=== PATIENT | female | born 1970 | race Caucasian/White ===

== ENCOUNTER 2018-08-31 12:08 | Emergency (ER) | payer OTHER, SELFPAY ==
[2018-08-31 12:10] VITALS: BP 146/73; PULSE 77; RESP 16; TEMP 36.4; O2SAT 97; BMI 29.5
--- NOTE | 2018-08-31 12:18 | ED.DCSUM_ITS ---
- ER Visit Summary Date of Service: 08/31/18 Chief Complaint: Left foot pain History of Present Illness: The patient is a 48 F who presents with left foot pain. She stepped in a hole last night. Hurts to walk on it. She took nothing for this at home. She walked a long distance after the injury and that made it worse. No previous injuries or fractures to this foot. Physical Examination: Vital signs reviewed. Left foot exam reveals tenderness to palpation of the proximal metatarsals. There is no ecchymosis. She has painful range of motion. 2+ DP pulses are palpated. She does have onychomycosis of each toenail. Test Results: X-rays are negative for fracture Emergency Department Course and Treatment: Patient declined pain medications. She will be given a postop shoe. She will ice and use NSAIDs. Will follow up with her PCP Treatment Plan: [] Disposition: Discharge Impression: Left foot sprain This note was generated with [employer] dictation software. It may contain incorrect words, spelling, and punctuation that were not noted in review of the chart prior to signing ED Disposition - Plan for ED Patient: Chief Complaint: Lower Extremity Injury
--- NOTE | 2018-08-31 12:42 | RAD_ITS ---
STUDY: X-RAY - LEFT FOOT CLINICAL: Female, 48 years old. Pain following an injury. TECHNIQUE: 3 view(s) of the foot. COMPARISON: None. FINDINGS: Normal talus, calcaneus, and tarsal bones. Normal visualized subtalar, talonavicular, calcaneocuboid, tarsal and tarsometatarsal articulations. Normal metatarsi. Normal metatarsophalangeal joint of the great toe. Normal tibial and fibular sesamoid bones. Normal interphalangeal joint of the great toe. Normal phalanges of the great toe. Normal second through fifth metatarsophalangeal joints. Normal interphalangeal joints and phalanges of the lesser toes. The soft tissue structures are unremarkable. RAD/Foot min 3 Views IMPRESSION: Normal x-ray examination of the foot. Electronically Signed: Perez Gonzalez MD at 13:04 EDT Tel [phone], Service support ,
--- NOTE | 2018-08-31 13:10 | ED.DEP ---
ED Disposition - Plan for ED Patient: Disposition: Home or Assisted Living Chief Complaint: Lower Extremity Injury Instructions: ED Sprain Foot Referrals: Care Physician,No Primary [Primary Care Provider] -
[2018-08-31 13:51] VITALS: RESP 16
--- NOTE | 2018-08-31 13:51 | ED.RN ---
REVIEWED D/C INSTRUCTIONS, FOLLOW UP CARE, AND S/S THAT WOULD WARRANT A RETURN TO THE ED WITH PT. PT VERBALIZED AN UNDERSTANDING AND DENIES FURTHER QUESTIONS FOR THIS RN. PT SKIN P/W/D, RESP EVEN AND UNLABORED, PT A&O X 3, NO DISTRESS NOTED. PT AMBULATED OUT OF ED, GAIT STEADY.
== END 2018-08-31 13:52 | disposition home or self-care (01) ==
PROVIDERS: Emergency Provider Emergency Medicine
DX: S93.602A Unspecified sprain of left foot, initial encounter (principal); J45.909 Unspecified asthma, uncomplicated; J44.9 Chronic obstructive pulmonary disease, unspecified; Z72.0 Tobacco use; Z79.51 Long term (current) use of inhaled steroids; Z79.899 Other long term (current) drug therapy; X58.XXXA Exposure to other specified factors, initial encounter; Y93.01 Activity, walking, marching and hiking; Y92.89 Other specified places as the place of occurrence of the external cause; Y99.8 Other external cause status
CPT/HCPCS: 73630; 99283

== ENCOUNTER 2018-10-28 21:14 | Emergency (ER) | payer MEDICAID, SELFPAY ==
[2018-10-28 21:15] VITALS: BP 124/77; PULSE 85; RESP 17; TEMP 36.3; O2SAT 98; BMI 26.5
[2018-10-28 22:14] VITALS: TEMP 36.4
--- NOTE | 2018-10-28 23:27 | ED.DCSUM_ITS ---
- ER Visit Summary Date of Service: 10/28/18 Chief Complaint: I need antibiotics and cough medicine History of Present Illness: The patient is a 48 F with a cough for a couple days. This is a dry cough. Associated with nasal congestion, low-grade fevers, vomiting, and a headache. Patient had similar symptoms in the past and has a history of asthma, COPD, and pneumonia. She is a smoker. Physical Examination: Afebrile and vital signs unremarkable. Alert and oriented. No acute distress. Sitting, breathing, speaking comfortably. HEENT exam unremarkable. Lungs clear in all garcia. Heart regular rate and rhythm. Skin appears normal. Test Results: None performed Emergency Department Course and Treatment: Treatment options were discussed. Patient was treated with Zofran, Tessalon Perles, and doxycycline. She received 1 dose of pain medicine here, but I advised that we do not prescribe controlled substances for this indication. Patient was advised to stay hydrated. She was given a prescription for Zofran and doxycycline. Follow-up with primary care. Return for any new or worsening issues. Treatment Plan: As above Disposition: Discharge Impression: 1. Bronchitis This note was generated with [employer] dictation software. It may contain incorrect words, spelling, and punctuation that were not noted in review of the chart prior to signing ED Disposition - Plan for ED Patient: Chief Complaint: Cold Sx Referrals: Care Physician,No Primary [Primary Care Provider] -
--- NOTE | 2018-10-28 23:27 | ED.DEP ---
ED Disposition - Plan for ED Patient: Chief Complaint: Cold Sx Instructions: Acute Bronchitis Prescriptions: Ondansetron [Zofran Odt] 4 mg PO Q8H PRN PRN #10 tab PRN Reason: Nausea Benzonatate [Tessalon Perle] 100 mg PO TID PRN PRN #20 cap PRN Reason: Cough Doxycycline 100 mg PO BID 7 Days #14 cap Referrals: Rc Ramsay DO [NON CLINICAL AFFILIATE] -
[2018-10-28] MEDS: Ondansetron ODT 4 MG Tablet 8 MG PO (23:38)
[2018-10-28] MEDS: Benzonatate 100 MG Capsule 200 MG PO (23:38)
[2018-10-28] MEDS: HYDROcodone Bitartrate/Apap 5/325 Tablet PO (23:38)
[2018-10-28] MEDS: Doxycycline 100 MG CAPSULE PO (23:38)
[2018-10-28 23:43] VITALS: PULSE 92; RESP 22; O2SAT 92
== END 2018-10-28 23:43 | disposition home or self-care (01) ==
LOC: ED 22:40
PROVIDERS: Emergency Provider Emergency Medicine
DX: J40 Bronchitis, not specified as acute or chronic (principal); F17.200 Nicotine dependence, unspecified, uncomplicated; J45.909 Unspecified asthma, uncomplicated; J44.9 Chronic obstructive pulmonary disease, unspecified; Z79.51 Long term (current) use of inhaled steroids; Z79.899 Other long term (current) drug therapy
CPT/HCPCS: 99283

== ENCOUNTER 2020-06-21 02:16 | Emergency (ER) | payer MEDICAID, SELFPAY ==
[2020-06-21 02:18] VITALS: BP 121/75; PULSE 87; RESP 15; TEMP 36.1; O2SAT 97; BMI 32.3
--- NOTE | 2020-06-21 02:29 | ED.VISSUMM ---
- ER Visit Summary Date of Service: 06/21/20 Chief Complaint: [Bilateral arm pain] History of Present Illness: The patient is a 50 F [presents the emergency department complaint of bilateral arm pain that she has had for several weeks. Patient states that she has had this achy discomfort in the forearms and hands. She denies any trauma. She denies any injury to her neck. She denies weakness in extremities. Patient states that she is currently taking tenacity and as well as meloxicam and it has not really helped her pain tonight. Patient does do a lot of repetitive motions with her arms. She has had prior surgery on her left arm to perform ulnar shortening. She moved to the area from [place] recently and has not established with a primary care physician locally. Patient denies any chest pain or shortness of breath. She denies any history of PE or DVT. Does have history of COPD.] Physical Examination: [HEENT-PERRLA, EOMI. Cranial nerves II through XII grossly intact. TMs clear. Mucous membranes moist. No adenopathy. Cardiovascular-regular rate and rhythm without murmur or ectopy Lungs-clear to auscultation, chest wall stable without crepitus or subcu emphysema Abdomen-normoactive bowel sounds, soft, nontender, no rebound or rigidity, no peritoneal signs. Extremities-intact ?4, normal range of motion, normal pulses, atraumatic. Evaluation of both arms reveal no evidence of edema. She is got normal pulses. Deep tendon reflexes are plus 2 out of 4 bilaterally at the bicep, tricep, and brachioradialis. 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 No ropes or cords palpated. Will cap refill.] Test Results: [None indicated] Emergency Department Course and Treatment: [] Treatment Plan: [She will be given a few [place] for pain. She will be given referral to orthopedics as well as primary care physician locally. Etiology of her arm pain is unclear although I suspect it may be related to neuropathy.] Disposition: [Discharged home in stable condition] Impression: [Bilateral arm pain] This note was generated with [employer] dictation software. It may contain incorrect words, spelling, and punctuation that were not noted in review of the chart prior to signing ED Disposition - Plan for ED Patient: Referrals: Care Physician,No Primary [Primary Care Provider] -
--- NOTE | 2020-06-21 02:31 | ED.DEP ---
ED Disposition - Plan for ED Patient: Instructions: ED PERIPHERAL NEUROPATHY Prescriptions: Hydrocodone Bitart/Apap 5-325 [[place] 5MG-325MG] 1 tab PO Q4H PRN PRN 2 Days #10 tab PRN Reason: Pain Prescription Printed Referrals: Care Physician,No Primary [Primary Care Provider] - Mireille Kelly MD [STAFF PHYSICIAN] - 3-5 Days Harry Pineda MD [STAFF PHYSICIAN] - 3-5 Days
[2020-06-21] MEDS: HYDROcodone Bitartrate/Apap 5/325 Tablet PO (02:51)
[2020-06-21 02:54] VITALS: BP 121/75; PULSE 87; RESP 15; O2SAT 97
== END 2020-06-21 03:07 | disposition home or self-care (01) ==
LOC: ED 02:59
PROVIDERS: Emergency Provider Emergency Medicine
DX: M79.601 Pain in right arm (principal); M79.602 Pain in left arm; F17.200 Nicotine dependence, unspecified, uncomplicated
CPT/HCPCS: 99283

== ENCOUNTER 2020-08-02 16:11 | Emergency (ER) | payer MEDICAID, SELFPAY ==
[2020-08-02 16:13] VITALS: BP 129/76; PULSE 85; RESP 16; TEMP 36.6; O2SAT 97; BMI 29.1
--- NOTE | 2020-08-02 16:38 | ED.DCSUM_ITS ---
History of Present Illness Chief Complaint: Other, Pain/Inj Narrative: Patient was moving this week and she is presenting with right-sided neck pain in the paraspinal region. There is some radiation to her right arm she has no loss of strength, she has no paresthesias in her hand or arm she has no chest pain or shortness of breath or any other symptoms. Past Medical History - Allergies and Home Meds Allergies/Adverse Reactions: Allergies ibuprofen Allergy (Verified 08/02/20 16:13) Anaphylaxis tramadol [From Ultram] Allergy (Verified 08/02/20 16:13) Hives MORPHINE Adverse Reaction (Uncoded 08/02/20 16:13) Other Primary Care Physician: Care Physician,No Primary [Primary Care Provider] - Past Medical History: - - COPD, continues to smoke Smoking Status: Current every day smoker Review of Systems General: Denies: Fever Eyes: Denies: Visual changes - bilaterally ENT: Denies: Sore throat Cardiovascular: Denies: Chest pain Respiratory: Denies: Dyspnea, Cough Gastrointestinal: Denies: Abdominal pain, Nausea, Vomiting Genitourinary: Denies: Dysuria Musculoskeletal: Reports: Neck pain. Denies: Back pain Skin: Denies: Rash Neurological: Denies: Headache, Weakness Hematologic: Denies: Easy bruising, Easy bleeding Physical Exam Vital Signs/Narrative: Vital Signs Temp Pulse Resp BP Pulse Ox 08/02/20 16:13 97.8 F 85 16 129/76 H 97 General: Well nourished, Well developed ENT: Moist mucous membranes, No rhinorrhea Neck: - - There is right paraspinal tenderness to palpation along the paraspinal muscles extending into the upper trapezius region, there are a few trigger points in that region. No C-spine tenderness. Cardiovascular: Regular rate, Regular rhythm Respiratory: No distress, - - Coarse bilateral breath sounds but speaks in full sentences without any respiratory distress Abdomen: Soft, Nontender Back: Nontender, Normal Inspection Extremities: Nontender, No edema Neurological: Normal Strength, Normal Sensation Diagnostic/Tx/Re-eval - Medical Decision Making Patient has a cervical strain, I will treat her as such. I will discharge in stable condition with analgesia and muscle relaxants. ED Disposition - Plan for ED Patient: Disposition: Home or Assisted Living Diagnosis: Cervical strain Instructions: ED Sprain Strain Neck Prescriptions: Hydrocodone Bitart/Apap 5-325 [[place] 5MG-325MG] 1 tab PO Q4H PRN PRN 2 Days #10 tab PRN Reason: Pain Prescription Printed Tizanidine HCl 4 mg PO TID PRN PRN #12 tab PRN Reason: Muscle Spasm Prescription Printed Referrals: Care Physician,No Primary [Primary Care Provider] - 3-5 Days
[2020-08-02] MEDS: cycloBENZAPRine HCl 10 MG Tablet PO (16:45)
[2020-08-02] MEDS: HYDROmorphone 1 MG/ML Syringe IM (16:45)
--- NOTE | 2020-08-02 17:28 | DCINST.ED_ITS ---
ED Disposition - Plan for ED Patient: Disposition: Home or Assisted Living Diagnosis: Cervical strain Instructions: ED Sprain Strain Neck Prescriptions: Hydrocodone Bitart/Apap 5-325 [[place] 5MG-325MG] 1 tab PO Q4H PRN PRN 2 Days #10 tab PRN Reason: Pain Prescription Printed Tizanidine HCl 4 mg PO TID PRN PRN #12 tab PRN Reason: Muscle Spasm Prescription Printed Referrals: Irvin Rocha MD [NON-STAFF] - 3-5 Days
[2020-08-02 17:32] VITALS: BP 114/79
== END 2020-08-02 17:32 | disposition home or self-care (01) ==
LOC: ED 17:03
PROVIDERS: Emergency Provider Emergency Medicine
DX: S16.1XXA Strain of muscle, fascia and tendon at neck level, initial encounter (principal); F17.200 Nicotine dependence, unspecified, uncomplicated; J44.9 Chronic obstructive pulmonary disease, unspecified; X58.XXXA Exposure to other specified factors, initial encounter
CPT/HCPCS: 96372; 99283

== ENCOUNTER 2020-08-11 17:24 | Emergency (ER) | payer MEDICAID, SELFPAY ==
[2020-08-11 17:25] VITALS: BP 138/75; PULSE 90; RESP 15; TEMP 36.1; O2SAT 99; BMI 33.5
--- NOTE | 2020-08-11 17:41 | ED.DCSUM_ITS ---
History of Present Illness Chief Complaint: Abscess Informant: Patient Narrative: 50-year-old female with no significant past medical history presents with left groin pain. States that she presented to [facility] [place] emergency department approximately 3 days ago where she had an abscess incised and drained. States that there was packing in this abscess but it had since fallen out. States that last night she was in the shower was able to express significant amount of purulent fluid. Patient concerned because she is having pain and did not get a prescription for antibiotics. Denies any fever, chills, abdominal pain, nausea, vomiting. Past Medical History - Allergies and Home Meds Allergies/Adverse Reactions: Allergies ibuprofen Allergy (Verified 08/11/20 17:24) Anaphylaxis tramadol [From Ultram] Allergy (Verified 08/11/20 17:24) Hives MORPHINE Adverse Reaction (Uncoded 08/11/20 17:24) Other Primary Care Physician: Care Physician,No Primary [Primary Care Provider] - Prior records reviewed: Yes Past Medical History: None Surgical History: no surgical history Lives: With Family Smoking Status: Current every day smoker Alcohol: None Drugs: None Review of Systems General: Denies: Chills, Fever, Sweats Eyes: Denies: Visual changes - bilaterally, Diplopia ENT: Denies: Rhinorrhea, Sore throat Cardiovascular: Denies: Chest pain, Palpitations Respiratory: Denies: Dyspnea, Cough, Dyspnea on exertion Gastrointestinal: Denies: Abdominal pain, Nausea, Vomiting, Diarrhea, Melena, Hematochezia Genitourinary: Denies: Dysuria, Hematuria, Frequency Musculoskeletal: Denies: Back pain, Extremity Pain Skin: Reports: Abscess. Denies: Rash, Wounds Neurological: Denies: Headache, Weakness, Numbness Physical Exam Vital Signs/Narrative: Vital Signs Temp Pulse Resp BP Pulse Ox 08/11/20 17:25 96.9 F L 90 15 138/75 H 99 General: Well nourished, Well developed, No Acute Distress Head: Normocephalic, Atraumatic Eyes: Perrl, EOMI ENT: Moist mucous membranes, No rhinorrhea Neck: Supple, Nontender Cardiovascular: Regular rate, Regular rhythm, No murmurs Respiratory: No distress, CTA bilaterally, Chest nontender Abdomen: Soft, Nontender, Nondistended, Normal bowel sounds Back: Nontender, Normal Inspection Extremities: Nontender, No edema Skin: Normal color, No rash, - - incised area to the left groin. with mild induration and no flutuance. no significant erythema. Neurological: Alert, Oriented x3, Cranial nerves II-XII grossly intact, Normal Strength, Normal Sensation Psychological: Normal affect, Normal Mood Diagnostic/Tx/Re-eval - Medical Decision Making Appears well and nontoxic. The abscess is already been incised and drained. Patient be placed on Keflex and Bactrim. Patient given 1 oxycodone in the emergency department. Advised on Tylenol at home. Advised to return for fever, chills, abdominal pain. Patient agreeable and discharged home in stable condition. Impression: 1. Left groin abscess - resolved 2. Tobacco abuse ED Disposition - Plan for ED Patient: Disposition: Home or Assisted Living Instructions: ED Abscess Incision And Drainage, ED Abscess Antibiotic Treatment Only Prescriptions: Smz/Tmp Ds [Bactrim Ds] 1 tab PO BID #14 tab Prescription Printed Cephalexin [Keflex] 500 mg PO Q6 #40 cap Prescription Printed Referrals: Rc Ramsay DO [NON CLINICAL AFFILIATE] - 3-5 Days
[2020-08-11 17:45] VITALS: PULSE 87; RESP 17; O2SAT 97
[2020-08-11] MEDS: Smz/Tmp Ds Tablet 1 TABLET PO (17:50)
[2020-08-11] MEDS: Cephalexin 250 MG Capsule 500 MG PO (17:50)
[2020-08-11] MEDS: oxyCODONE 5 MG Tablet PO (17:51)
== END 2020-08-11 17:58 | disposition home or self-care (01) ==
LOC: ED 17:52
PROVIDERS: Emergency Provider Emergency Medicine
DX: L02.214 Cutaneous abscess of groin (principal); F17.200 Nicotine dependence, unspecified, uncomplicated
CPT/HCPCS: 99281

== ENCOUNTER 2021-04-09 21:42 | Emergency (ER) | payer MEDICAID, SELFPAY ==
[2021-04-09 21:42] VITALS: BP 156/96; PULSE 92; RESP 18; TEMP 36.6; O2SAT 97; BMI 35.4
[2021-04-09] MEDS: oxyCODONE 5 MG Tablet PO (22:30)
--- NOTE | 2021-04-09 22:40 | RAD_ITS ---
STUDY: X-RAY - PELVIS REASON FOR EXAM: Female, 50 years old. injury TECHNIQUE: One view of the pelvis was obtained. COMPARISON: None. FINDINGS: There is a non-specific bowel gas pattern. Normal visualized soft tissue structures. Normal bilateral iliac wings, sacroiliac joints and visualized sacrum. Normal visualized bilateral superior and inferior pubic rami. Normal pubic symphysis. Normal ischial tuberosities. Normal visualized right femoral head. Normal right acetabulum. Normal right hip joint. Normal visualized left femoral head. Normal left acetabulum. Normal left hip joint. RAD/Pelvis 1 or 2 Views IMPRESSION: Normal x-ray examination of the pelvis. Electronically Signed: Haresh Mcmanus DO at 23:35 EDT Tel , Service support ,
--- NOTE | 2021-04-09 22:45 | RAD_ITS ---
STUDY: X-RAY - LUMBAR SPINE REASON FOR EXAM: Female, 50 years old. injury TECHNIQUE: 3 view(s) of the lumbar spine were obtained. COMPARISON: None FINDINGS: Normal lumbar lordosis. There is no substantial scoliosis. There is a normal alignment of the vertebrae. Normal vertebral bodies and endplates. Normal disc space heights. The soft tissue structures are unremarkable. RAD/Lumbar Spine 2 or 3 Views IMPRESSION: Normal x-ray examination of the lumbar spine. Electronically Signed: Haresh Mcmanus DO at 23:34 EDT Tel , Service support ,
--- NOTE | 2021-04-09 22:50 | RAD_ITS ---
STUDY: X-RAY - RIGHT RADIUS AND ULNA REASON FOR EXAM: Female, 50 years old. injury TECHNIQUE: 2 view(s) of the forearm. COMPARISON: None. FINDINGS: There is no demonstrated soft tissue swelling. Normal visualized radius. Normal visualized ulna. RAD/Forearm 2 Views IMPRESSION: Normal x-ray examination of the radius and ulna. Electronically Signed: Haresh Mcmanus DO at 23:34 EDT Tel , Service support ,
--- NOTE | 2021-04-09 22:57 | RAD_ITS ---
STUDY: X-RAY CHEST REASON FOR EXAM: Female, 50 years old. injury TECHNIQUE: PA and lateral views of the chest. COMPARISON: None. FINDINGS: The lungs are clear and expanded. There is no demonstrated pleural abnormality. Normal size heart. Normal mediastinum and richard. Normal visualized pulmonary arteries. Normal visualized aortic arch and descending thoracic aorta. Normal visualized thoracic spine. Normal visualized ribs, clavicles, and shoulders. There is no demonstrated abnormality of the visualized soft tissue structures of the upper abdomen. RAD/Chest PA and Lateral IMPRESSION: Normal x-ray examination of the chest. Electronically Signed: Haresh Mcmanus DO at 23:34 EDT Tel , Service support ,
--- NOTE | 2021-04-09 23:47 | ED.VIS.FALL ---
HPI HPI - Fall History of Present Illness Chief Complaint: Fall Informant: patient Occured/Mechanism Occurred: Today Pain/Injury Pain Location: pelvis, back and upper extremity (Right forearm) Current Severity: Moderate Maximum Severity: Severe Narrative Narrative: Patient presents with right forearm and back pain after a fall. 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 Patient complains of pain throughout the right forearm, lower back, and posterior pelvis. She is not able to get pain under control at home and came in. She did not take anything at home for pain. [facility] Medical History Asthma COPD (chronic obstructive pulmonary disease) Emphysema of lung Fracture Ruptured ectopic Home Medications citalopram [Celexa] 40 mg PO DAILY 08/31/18 [History Last Taken Unknown] folic acid 1 mg PO DAILY@0800 08/31/18 [History Last Taken Unknown] topiramate [Topamax] 25 mg PO DAILY 08/31/18 [History Last Taken Unknown] budesonide-formoterol [Symbicort 160/4.5 Mcg Inhaler (SP)] 2 puff INHALATION BID 10/28/18 [History Last Taken Unknown] ipratropium-albuterol [Combivent Respimat] 2 puff INHALATION Q4H 04/09/21 [History Last Taken Unknown] oxycodone-acetaminophen [Percocet] 1 tab PO Q6H PRN 3 Days #10 tab 04/09/21 [Rx Last Taken Unknown] Allergy/AdvReac Type Severity Reaction Status Date / Time ibuprofen Allergy Anaphylaxis Verified 04/09/21 21:44 tramadol [From Ultram] Allergy Hives Verified 04/09/21 21:44 MORPHINE AdvReac Other Uncoded 04/09/21 21:44 Surgical History History of appendectomy Social History Smoking Status: Current every day smoker tobacco type: cigarettes ROS ROS ED Constitutional Constitutional ED: Denies chills or fever(s) Eyes Eyes: Denies change in vision ENT ENT ED: Denies sore throat Cardiovascular Cardiovascular: Denies chest pain Respiratory/Chest Respiratory/Chest: Denies cough or dyspnea Gastrointestinal Gastrointestinal: Denies abdominal pain, diarrhea, nausea or vomiting Genitourinary Genitourinary ED: Denies dysuria Musculoskeletal Musculoskeletal: Reports arthralgias and back pain Integumentary Denies Abrasions or rash Neurologic Neurologic: Denies headache(s) or weakness Psychiatric Psychiatric: Denies anxiety or depression Endocrine Endocrinology: Denies polydipsia or polyuria Allergic/Immunologic Allergic/Immunologic ED: Denies urticaria EXAM Physical Exam Const Vital Signs: 04/09/21 21:42 04/09/21 21:51 Temperature 97.8 F Temperature Source Temporal Pulse Rate 92 Respiratory Rate 18 Respiratory Effort Normal Non-Labored Respiratory Depth Normal Respiratory Pattern Normal Blood Pressure 156/96 H Blood Pressure Mean 116 Pulse Ox 97 Oxygen Delivery Method Room Air Positive well nourished and well developed General Appearance ED: well developed HEENT Reports normocephalic and head/scalp atraumatic Eyes PERRL and EOMs intact bilaterally Neck supple Chest Wall inspection of chest normal and palpation of chest normal Resp normal respiratory effort and clear to auscultation bilaterally Cardio regular rate and regular rhythm GI normal to inspection, nondistended, normoactive bowel sounds Palpation: soft Back/Spine Back/Spine Narrative: Mild tenderness at the low lumbar midline. No overlying abrasions. Tenderness over the sacrum and posterior pelvis along the SI joints. Extremity normal to inspection Extremity Narrative: Mild tenderness throughout the right forearm. No obvious deformity. Full range of motion at wrist and elbow. Strong distal pulses and normal sensation. Right lower extremity examination was mild tenderness of the greater trochanter. No abrasions or ecchymosis to this area. Full range of motion. Neuro oriented x3 and no sensory deficits noted Sensorium / Orientation: alert Motor Exam: strength 5/5 throughout Psych mental status grossly normal Skin no rashes or lesions noted MDM MDM MDM Narrative Medical decision making narrative: Patient was given a dose of oxycodone for pain. X-rays of the right forearm, chest, lumbar spine, pelvis are obtained. Radiography Diagnostic Testing: Radiology Impression Pelvis X-Ray 04/09/21 22:40 IMPRESSION: Normal x-ray examination of the pelvis. Electronically Signed: Haresh Mcmanus DO at 23:35 EDT Tel , Service support , Lumbar Spine X-Ray 04/09/21 22:45 IMPRESSION: Normal x-ray examination of the lumbar spine. Electronically Signed: Haresh Mcmanus DO at 23:34 EDT Tel , Service support , Forearm X-Ray 04/09/21 22:50 IMPRESSION: Normal x-ray examination of the radius and ulna. Electronically Signed: Haresh Mcmanus DO at 23:34 EDT Tel , Service support , Chest X-Ray 04/09/21 22:57 IMPRESSION: Normal x-ray examination of the chest. Electronically Signed: Haresh Mcmanus at 23:34 EDT Tel , Service support , Treatment and Re-Evaluation Comments:: X-rays are reviewed by myself. No acute abnormalities are appreciated. Radiologist interpretation is also reviewed. Test results discussed with the patient. She will be given a short course of Percocet for home. She has muscle relaxers at home that she will also take. Discharge Plan Triage Chief Complaint: Fall ED Provider: Sherry Frazier Dx/Rx/DC Orders Clinical Impression: Contusion of forearm, right, Lumbar strain Instructions: ED Back Sprain/Strain, ED Contusion, Upper Extremity Prescriptions: New oxycodone-acetaminophen [Percocet] 5-325 mg tablet 1 tab PO Q6H PRN (Reason: pain) 3 Days Qty: 10 RF: 0 No Action topiramate [Topamax] 25 MG tablet 25 mg PO DAILY RF: 0 citalopram [Celexa] 20 MG tablet 40 mg PO DAILY RF: 0 folic acid 1 MG tablet 1 mg PO DAILY@0800 RF: 0 budesonide-formoterol [Symbicort] 1 INHALER inhaler 2 puff inhalation BID RF: 0 Combivent Respimat 20-100 mcg/actuation Mist 2 puff INHALATION Q4H RF: 0 Primary Care Provider: Care Physician,No Primary Referrals: Mireille Kelly MD [STAFF PHYSICIAN] - As Needed Care Physician,No Primary [Primary Care Provider] - Disposition Disposition: Home, self care Discharge Date/Time: 04/09/21 23:53
== END 2021-04-09 23:53 | disposition home or self-care (01) ==
PROVIDERS: Emergency Provider Emergency Medicine
DX: S50.11XA Contusion of right forearm, initial encounter (principal); S39.012A Strain of muscle, fascia and tendon of lower back, initial encounter; F17.210 Nicotine dependence, cigarettes, uncomplicated; J44.9 Chronic obstructive pulmonary disease, unspecified; W01.0XXA Fall on same level from slipping, tripping and stumbling without subsequent striking against object, initial encounter; Z79.51 Long term (current) use of inhaled steroids; Z79.899 Other long term (current) drug therapy
CPT/HCPCS: 71046; 72100; 72170; 73090; 99283